=== PATIENT | female | born 1985 | race Caucasian/White ===

== ENCOUNTER 2022-01-08 08:06 | Outpatient (CLI) | payer OTHER, SELFPAY ==
[2022-01-08 11:40] LABS: Cholesterol* 171 mg/dL (90-199)
[2022-01-08 11:41] LABS: HDL Cholesterol* 27 mg/dL (>=50); LDL Cholesterol Calculated 56 mg/dL (<100)
[2022-01-08 11:56] LABS: Triglycerides* 440 mg/dL (40-149)
== END 2022-01-08 08:07 | disposition home or self-care (01) ==
LOC: NFLDREF 08:09
PROVIDERS: PCP Family Medicine; Visit Provider Registered Nurse
DX: E78.5 Hyperlipidemia, unspecified (principal)
CPT/HCPCS: 80061

== ENCOUNTER 2022-07-07 19:29 | Outpatient (CLI) | payer OTHER, SELFPAY ==
--- NOTE | 2022-07-16 08:44 | W.PM.SLEEP ---
Sleep Study Details Details Interpreting Provider: Dennis Cota MD Date of Sleep Study: 07/07/22 Sleep Study Details: STUDY TYPE:? Home ? BMI:? 39.5 ORDERING PROVIDER:? Arpita INDICATION:? Concerns about sleep apnea ? SLEEP SUMMARY:? 418.5 minutes monitored RESPIRATORY SUMMARY:? AHI 14.1, supine 21, left lateral 3.3, right lateral 1.7 Low oxygen 87 0.1% of study oxygen was less than 90, 85, 80, and 70% Snoring 68.2% PERIODIC LIMB MOVEMENTS OF SLEEP:? Not recorded CARDIAC:? Range 48-88, mean 58.9 beats per minute IMPRESSION:? Mild obstructive sleep apnea with supine position dependency. There is minimal to no apnea in the left and right lateral positions. RECOMMENDATION: Treatment options include trial of lateral sleep, CPAP AutoSet 4-17, dental appliance, and/or weight loss.
== END 2022-07-07 19:30 | disposition home or self-care (01) ==
PROVIDERS: PCP Family Medicine; Visit Provider Family Medicine
DX: G47.33 Obstructive sleep apnea (adult) (pediatric) (principal)
CPT/HCPCS: 95806

== ENCOUNTER 2022-08-27 09:01 | Outpatient (CLI) | payer OTHER, SELFPAY ==
--- NOTE | 2022-08-27 09:00 | CRLHL7_ITS ---
For Patients: As a result of the Century Cures Act, medical imaging exams and procedure reports are released immediately into your electronic medical record. You may view this report before your referring provider. If you have questions, please contact your health care provider. INDICATION: Sinusitis. TECHNIQUE: Noncontrast CT images acquired through the paranasal sinuses. COMPARISON: None. FINDINGS: No air-fluid levels to suggest acute sinusitis. Mild mucosal thickening in the maxillary sinuses. The ethmoid infundibula are widely patent. Minimal mucosal thickening in the right frontal recess. The frontal sinuses are otherwise clear. Mild mucosal thickening in the ethmoid air cells. Minimal mucosal thickening in the sphenoid sinuses. The sphenoethmoidal recesses are widely patent. There is 6-7 mm rightward nasal septal deviation. No nasal cavity masses. The mastoid air cells are clear. IMPRESSION: 1. Mild paranasal sinus mucosal disease. No air-fluid levels to suggest acute sinusitis. 2. Rightward nasal septal deviation. Please note that all CT scans at this facility use dose modulation, iterative reconstruction, and/or weight-based dosing when appropriate to reduce radiation dose to as low as reasonably achievable. Dictated by Kristopher Hoang MD @ 08/27/2022 12:02:28 PM (Electronically Signed)
== END 2022-08-27 09:02 | disposition home or self-care (01) ==
LOC: CT 09:02
PROVIDERS: PCP Family Medicine; Visit Provider Otolaryngology
DX: J32.9 Chronic sinusitis, unspecified (principal); J34.2 Deviated nasal septum
CPT/HCPCS: 70486

== ENCOUNTER 2023-04-08 15:43 | Outpatient (CLI) | payer OTHER, SELFPAY ==
--- NOTE | 2023-04-08 15:40 | CRLHL7_ITS ---
For Patients: As a result of the Century Cures Act, medical imaging exams and procedure reports are released immediately into your electronic medical record. You may view this report before your referring provider. If you have questions, please contact your health care provider. BILATERAL SCREENING MAMMOGRAM WITH COMPUTER-AIDED DETECTION AND TOMOSYNTHESIS TECHNIQUE: CC and MLO views were obtained. These mammographic images have been obtained using full-field digital technique. These mammographic images were interpreted with the benefit of computer-aided detection. Breast Tomosynthesis was used in this interpretation. COMPARISON FILM: Baseline. FINDINGS: The breasts are almost entirely fatty IMPRESSION: There is no radiographic evidence for malignancy. ASSESSMENT: BI-RADS Category 2: Benign RECOMMENDATION: Routine screening mammogram in 1 year. A lay language report of this examination will be provided to the patient. Freddie Aguilar M.D. Diagnostic Radiologist [email or web address] PRAVEEN/Dictated by: Freddie Aguilar MD @ 04/09/2023 12:04:00 PM (Electronically Signed)
== END 2023-04-08 15:44 | disposition home or self-care (01) ==
LOC: MAMMO 15:43
PROVIDERS: PCP Family Medicine; Visit Provider Registered Nurse
DX: Z12.31 Encounter for screening mammogram for malignant neoplasm of breast (principal)
CPT/HCPCS: 77063; 77067

== ENCOUNTER 2023-06-06 08:54 | Outpatient (CLI) | payer OTHER, SELFPAY ==
--- OUTSIDE RECORDS SUMMARY | 2023-06-11 21:23 | XMS_ITS | Clinical Summary ---
Author Name Unknown Organization [employer] [facility] [employer] Address [place], [place] [address] Care Team Providers Care Equipment Operator/Laborer/Supervisor Name Role Phone Services, [facility] Tabby Palm MD Primary Care Provider + Allergies No known active allergies Medications Medication Sig Dispensed Refills Start Date End Date Status vitamin-folic acid 1 mg ( VITAMIN) tablet/capsule Take 1 tablet by mouth once daily. 0 11/01/2015 Active Active Problems Problem Noted Date Diagnosed Date Gestational diabetes 06/04/2013 Immunizations Name Administration Dates Next Due DTaP 11/14/1988, 5,1983,1983, Influenza Virus, Unspecified 03/08/2015 Influenza, IIV4 03/26/2016 MMR 08/04/1984 Polio Virus, Unspecified 11/14/1988,09/01,1983,1983, Tdap 03/11/2012,04/12/2010,12/01/2008 Family History Medical History Relation Name Comments Heart Disease Father Stent Hypertension Father Cancer-breast Maternal Aunt 1 Cancer-breast Maternal Aunt 2 Cancer Maternal Grandfather Pancrea tic Dec @ 85 Cancer-breast Maternal Grandmother Diabetes Maternal Grandmother Heart Disease Maternal Grandmother CAD Hypertension Maternal Grandmother Dec @ 7 0 Good Health Mother Cancer Paternal Grandfather Pancrea tic Heart Disease Paternal Grandfather CABG Diabetes Paternal Grandmother Hypertension Paternal Grandmother Relation Name Status Comments Father Maternal Aunt 1 Maternal Aunt 2 Maternal Grandfather Maternal Grandmother Mother Paternal Grandfather Paternal Grandmother Social History Tobacco Use Types Packs/Day Years Used Date Smoking Tobacco: Never Smokeless Tobacco: Never Alcohol Use Standard Drinks/Week Comments No 0 (1 standard drink = 0.6 oz pur e alcohol) Sex and Gender Information Value Date Recorded Sex Assigned at Not on file Gender Identity Not on file Sexual Orientation Not on file Obstetrics History Para Term AB IAB SAB Ectopic Multiple Livin g Live Births 1 Date Outcome GA Total Labor Labor/2nd/3rd Weight Sex Delivery Anes PTL Zabrina A1 A5 Name Cl in Last Filed Vital Signs Vital Sign Reading Time Taken Comments Blood Pressure 129/85 06/21/2018 12:01 PM HOUSE REPAIRER Pulse 66 06/21/2018 12:01 PM HOUSE REPAIRER Temperature 36.2 ??C (97.2 ??F) 06/21/2018 12:[address] Respiratory Rate 20 06/21/2018 12:01 PM HOUSE REPAIRER Oxygen Saturation 98% 06/21/2018 12:01 PM HOUSE REPAIRER Inhaled Oxygen Concentration - - Weight 88 kg (194 lb 1.6 oz) 03/26/2016 8:44 AM CDT Height 164.5 cm (5' 4.75) 03/26/2016 8:44 AM CD T Body Mass Index 32.55 03/26/2016 8:44 AM CDT Plan of Treatment Health Maintenance Due Date Last Done Comments HIV for age 15-65 1998 Hepatitis C screening for age 18-79 2001 Depression screening for age 12+ 10/31/2016 11/01/2015 BMI (ht and wt on same day) for age 18+ 03/26/2017 03/26/2016, 11/05/2015, 11/01/2015, Additional history exists Tetanus booster 03/11/2022 03/11/2012, 04/02, 12/01/2008 COVID-19 vaccine series ( season) 2023 03/26/2021 Influenza for age 9-49 01/31/2023 03/26/2016, 2014 Pap test for age 21-65 10/07/2023 10/06/2020, 2020 Tdap Completed 03/11/2012, 04/02, 12/01/2008 Pneumococcal series for age 6-64 Aged Out No longer eligible based on patient's age to complete this topic Care Teams Equipment Operator/Laborer/Supervisor Relationship Specialty Start Date End Date Tabby Palm MD [address] [place] [address] PCP - General Family Practice 04/25/21 Services, [address] [address] 06/21/18
== END 2023-06-06 08:55 | disposition home or self-care (01) ==
LOC: NFLDREF 06-11 21:22
PROVIDERS: PCP Family Medicine; Referring Provider Family Medicine; Visit Provider Family Medicine
DX: R73.03 Prediabetes (principal); E66.9 Obesity, unspecified; E78.2 Mixed hyperlipidemia; R53.83 Other fatigue
CPT/HCPCS: 80053; 80061; 84443

== ENCOUNTER 2023-07-09 14:00 | Outpatient (CLI) | payer OTHER, SELFPAY ==
--- OUTSIDE RECORDS SUMMARY | 2023-07-11 05:48 | XMS_ITS | Clinical Summary ---
Author Name Unknown Organization [employer] [facility] [employer] [facility] Address [place], [place] [address] Care Team Providers Care Records Clerk Name Role Phone Services, [facility] Tabby Palm MD Primary Care Provider + [...] Comments Blood Pressure 129/85 06/21/2018 12:01 PM BIOMASS POWER PLANT SUPERINTENDENT Pulse 66 06/21/2018 12:01 PM BIOMASS POWER PLANT SUPERINTENDENT Temperature 36.2 ??C (97.2 ??F) 06/21/2018 12:[address] Respiratory Rate 20 06/21/2018 12:01 PM BIOMASS POWER PLANT SUPERINTENDENT Oxygen Saturation 98% 06/21/2018 12:01 PM BIOMASS POWER PLANT SUPERINTENDENT Inhaled Oxygen Concentration - - Weight 88 [...] age to complete this topic Care Teams Records Clerk Relationship Specialty Start Date End Date Tabyb Palm MD [address] [place] [address] PCP - General Family Practice 04/25/21 Services, [address] [address] 06/21/18
== END 2023-07-09 14:01 | disposition home or self-care (01) ==
LOC: NFLDREF 07-11 05:46
PROVIDERS: PCP Family Medicine; Referring Provider Family Medicine; Visit Provider Nurse Practitioner Family
DX: R35.0 Frequency of micturition (principal); R10.9 Unspecified abdominal pain
CPT/HCPCS: 87086

== ENCOUNTER 2023-12-30 19:29 | Outpatient (CLI) | payer OTHER, SELFPAY ==
--- OUTSIDE RECORDS SUMMARY | 2023-12-30 19:31 | XMS_ITS | Clinical Summary ---
Author Organization [employer] [facility] [employer] [facility] Address [place], [place] [address] Care Team Providers Care Ebd Teacher Name Role Phone Services, [facility] [place] [phone] Tabby Palm MD Primary Care Provider + [...] IIV4 03/26/2016 MMR 08/04/1984 Polio Virus, Unspecified 11/14/1988,04/2 09/1984,1983,1983, Tdap 03/11/2012,04/12/2010,12/01/2008 Family History Medical History Relation [...] Outcome GA Total Labor Labor/2nd/3rd Weight Sex Type Anes PTL Zabrina A1 A5 Name Clin Last Filed Vital Signs Vital Sign Reading Time Taken Comments Blood Pressure 129/85 06/21/2018 12:01 PM YEAST CAKE CUTTER Pulse 66 06/21/2018 12:01 PM YEAST CAKE CUTTER Temperature 36.2 ??C (97.2 ??F) 06/21/2018 12:[address] Respiratory Rate 20 06/21/2018 12:01 PM YEAST CAKE CUTTER Oxygen Saturation 98% 06/21/2018 12:01 PM YEAST CAKE CUTTER Inhaled Oxygen Concentration - - Weight 88 [...] COVID-19 vaccine series ( season) 2023 03/26/2021 Pap test for age 21-65 10/07/2023 10/06/2020, 2020 Influenza for age 9-49 02/01/2024 03/26/2016, 2014 Tdap Completed 03/11/2012, 04/02, 12/01/2008 Pneumococcal series for age 6-64 Aged Out No longer eligible based on patient's age to complete this topic Procedures Procedure Name Priority Date/Time Associated Diagnosis Comments ALLERGY NURSE THIN PREP PAP SCREEN IMAGED Routine 10/06/2020 2:30 PM CDT from Last 3 Months or Most Recently Relevant to Health Maintenance Results * ALLERGY NURSE THIN PREP PAP SCREEN IMAGED (10/06/2020 2:30 PM CDT) Case Report Gynecologic Cytology Report ? Case: [id number] ? Authorizing Provider: ??Yvonne Ulrcih MD ?? Collected: ? 10/06/2020 1430 ? Ordering Location: ? [facility] ?Received: ?10/10/2020 0819 ? First Screen: ?Radha Weiss ? Specimen: ?ALLERGY NURSE ThinPrep Vial Screening, Cervical/Vaginal ? 10/19/2020 10:10 AM CDT [facility] INTERPRETATION/ RESULT NEGATIVE FOR INTRAEPITHELIAL LESION OR MALIGNANCY (NIL) (none) 10/19/2020 10:10 AM CDT [facility] IMEN ADEQUACY Satisfactory for evaluation Endocervical component present 10/19/2020 10:10 AM CDT [facility] HPV REQUEST HPV and PAP 10/19/2020 10:10 AM CDT [facility] Last Pap Date 06/22/2015 10/19/2020 10:10 AM CDT [facility] Last Pap Result NIL 10:10 AM CDT [facility] Comment:Negative Additional Information 10/19/2020 10:10 AM CDT [facility] Comment: Interpreted at [facility] - [address], [place] [address] Automated Review Successful 10/19/2020 10:10 AM CDT [facility] Comment:Specimen processed s uccessfully by automated gimp buttonhole machine operator device, [employer]Prep Imaging System, [employer] ANCILLARY TESTING ALLERGY NURSE HPV Ordered, Please see separate report 10/19/2020 10:10 AM CDT [facility] Note The pap test is a screening technique, not a diagnostic procedure. It is used primarily to screen for squamous cancers and precursor lesions. Published studies have shown that it is subject to both false negative and false positive results. The pap test should not be used as the sole means to diagnose or exclude pre-malignant and malignant lesions. 10/19/2020 10:10 AM T [facility] Other (Cervical/Vagina l) 10/06/2020 2:30 PM CDT 10/10/2020 8:19 AM CDT Yvonne Ulrich MD PATHOLOGY/CYTOLOG Y [facility] [address] [place] [address], [place] from Last 3 Months or Most Recently Relevant to Health Maintenance Care Teams Ebd Teacher Relationship Specialty Start Date End Date Tabby Palm MD [address] [place] [address] PCP - General Family Practice 04/25/21 Services, [address] [phone] 06/21/18
--- NOTE | 2024-01-27 08:12 | W.PM.SLEEP ---
Sleep Study Details Details Interpreting Provider: Cipriano Date of Sleep Study: 12/30/23 Sleep Study Details: STUDY TYPE:? Home unattended ? BMI:? 40.3 ORDERING PROVIDER:? Cipriano INDICATION:? Concern about sleep apnea ? SLEEP SUMMARY:? 302 minutes monitored RESPIRATORY SUMMARY:? AHI 11.5 Low oxygen 82 21.7% of study oxygen less than 90% Snoring 100% PERIODIC LIMB MOVEMENTS OF SLEEP:? Not recorded CARDIAC:? Range 52-93, mean 67.5 IMPRESSION:? Mild obstructive sleep apnea Significant hypo oxygenation. 21.7% of study oxygen less than 90% RECOMMENDATION: Treatment options for the obstructive sleep apnea include CPAP, dental appliance, weight loss and/or airway expansion surgery. Once effective therapy is established an overnight oximetry should be performed. Further cardiopulmonary evaluation may be indicated.
== END 2023-12-30 19:30 | disposition home or self-care (01) ==
LOC: SLEEP 19:29
PROVIDERS: PCP Family Medicine; Visit Provider Otolaryngology
DX: G47.33 Obstructive sleep apnea (adult) (pediatric) (principal)
CPT/HCPCS: 95806

== ENCOUNTER 2024-01-13 07:58 | Outpatient (CLI) | payer OTHER, SELFPAY ==
--- OUTSIDE RECORDS SUMMARY | 2024-01-16 08:15 | XMS_ITS | Clinical Summary ---
Author Organization [employer] [facility] [employer] [facility] Address [place], [place] [address] Care Team Providers Care Club Concierge Name Role Phone Services, [facility] Tabby Palm MD Primary Care Provider + [...] Comments Blood Pressure 129/85 06/21/2018 12:01 PM LACTATION CONSULTANT Pulse 66 06/21/2018 12:01 PM LACTATION CONSULTANT Temperature 36.2 ??C (97.2 ??F) 06/21/2018 12:[address] Respiratory Rate 20 06/21/2018 12:01 PM LACTATION CONSULTANT Oxygen Saturation 98% 06/21/2018 12:01 PM LACTATION CONSULTANT Inhaled Oxygen Concentration - - Weight 88 [...] Procedure Name Priority Date/Time Associated Diagnosis Comments OFFSET ASSISTANT PRESS OPERATOR THIN PREP PAP SCREEN IMAGED Routine 10/06/2020 2:30 PM CDT from Last 3 Months or Most Recently Relevant to Health Maintenance Results * OFFSET ASSISTANT PRESS OPERATOR THIN PREP PAP SCREEN IMAGED (10/06/2020 2:30 PM CDT) Case Report Gynecologic Cytology Report ? Case: [id number] ? Authorizing Provider: ??Yvonne Ulrich MD ?? Collected: ? 10/06/2020 1430 ? Ordering Location: ? [facility] ?Received: ?10/10/2020 0819 ? First Screen: ?Radha Weiss ? Specimen: ?OFFSET ASSISTANT PRESS OPERATOR ThinPrep Vial Screening, Cervical/Vaginal ? 10/19/2020 10:10 AM CDT [facility] INTERPRETATION/ RESULT NEGATIVE FOR INTRAEPITHELIAL LESION OR MALIGNANCY (NIL) (none) 10/19/2020 10:10 AM CDT [facility] IMEN ADEQUACY Satisfactory for evaluation Endocervical component present 10/19/2020 10:10 AM CDT [facility] HPV REQUEST HPV and PAP 10/19/2020 10:[address] [facility] Last Pap Date 06/22/2015 10/19/2020 10:[address] [facility] Last Pap Result NIL 10:[address] [facility] Comment:Negative Additional Information 10/19/2020 10:[address] [facility] Comment: Interpreted at [facility] - [address], [place] [address] Automated Review Successful 10/19/2020 10:[address] [facility] Comment:Specimen processed s uccessfully by automated parts interpreter device, [employer]Prep Imaging System, [employer] ANCILLARY TESTING OFFSET ASSISTANT PRESS OPERATOR HPV Ordered, Please see separate report 10/19/2020 10:[address] [facility] Note The pap test is a [...] and malignant lesions. 10/19/2020 10:[address] [facility] Other (Cervical/Vagina l) 10/06/2020 2:30 PM CDT 10/10/2020 8:19 AM CDT Yvonne Ulrich MD PATHOLOGY/CYTOLOG Y [facility] [address] [place] [address], [place] from Last 3 Months or Most Recently Relevant to Health Maintenance Care Teams Club Concierge Relationship Specialty Start Date End Date Tabby Palm MD [address] [place] [address] PCP - General Family Practice 04/25/21 Services, [address] [phone] 06/21/18
== END 2024-01-13 07:59 | disposition home or self-care (01) ==
LOC: NFLDREF 01-16 08:13
PROVIDERS: PCP Family Medicine; Referring Provider Family Medicine; Visit Provider Registered Nurse
DX: E78.2 Mixed hyperlipidemia (principal)
CPT/HCPCS: 80061

== ENCOUNTER 2024-01-29 07:13 | Outpatient (CLI) | payer OTHER, SELFPAY ==
--- NOTE | 2024-01-29 07:15 | CRLHL7_ITS ---
For Patients: As a result of the Century Cures Act, medical imaging exams and procedure reports are released immediately into your electronic medical record. You may view this report before your referring provider. If you have questions, please contact your health care provider. INDICATION: Displacement of IUD COMPARISON: none TECHNIQUE: 2D muñoz scale and color Doppler images were acquired of the pelvis using a transabdominal and transvaginal approach. FINDINGS: Sonographic images demonstrate a normal size and smooth outer contour of the uterus. Uterus measures 9.0 cm in length by 3.8 cm in AP diameter by 5.0 cm in transverse dimension. The myometrium has a heterogeneous echotexture. The endometrial lining measures 3.3 mm in composite thickness. Multiple nabothian cysts. IUD in the mid endometrium. The right ovary measures 4.4 x 3.1 x 4.1 cm in size and the left ovary is not visualized. The right ovary demonstrates normal arterial and venous blood flow on color Doppler analysis. There are no suspicious fluid collections within the cul-de-sac. IMPRESSION: IUD in the midportion of the endometrium. Dictated by Freddie Aguilar MD @ 01/29/2024 1:40:57 PM (Electronically Signed)
--- OUTSIDE RECORDS SUMMARY | 2024-01-29 07:16 | XMS_ITS | Clinical Summary ---
Author Organization [employer] [facility] [employer] [facility] Address [place], [place] [address] Care Team Providers Care Home Care Specialist Name Role Phone Services, [facility] [phone] Tabby Palm MD Primary Care Provider + [...] Comments Blood Pressure 129/85 06/21/2018 12:01 PM OIL BAY TECHNICIAN Pulse 66 06/21/2018 12:01 PM OIL BAY TECHNICIAN Temperature 36.2 ??C (97.2 ??F) 06/21/2018 12:[address] Respiratory Rate 20 06/21/2018 12:01 PM OIL BAY TECHNICIAN Oxygen Saturation 98% 06/21/2018 12:01 PM OIL BAY TECHNICIAN Inhaled Oxygen Concentration - - Weight 88 [...] Procedure Name Priority Date/Time Associated Diagnosis Comments EDGER RUNNER THIN PREP PAP SCREEN IMAGED Routine 10/06/2020 2:30 PM CDT from Last 3 Months or Most Recently Relevant to Health Maintenance Results * EDGER RUNNER THIN PREP PAP SCREEN IMAGED (10/06/2020 2:30 PM CDT) Case Report Gynecologic Cytology Report ? Case: [id number] ? Authorizing Provider: ??Yvonne Ulrich MD ?? Collected: ? 10/06/2020 1430 ? Ordering Location: ? [facility] ?Received: ?10/10/2020 0819 ? First Screen: ?Radha Weiss ? Specimen: ?EDGER RUNNER ThinPrep Vial Screening, Cervical/Vaginal ? 10/19/2020 10:10 AM CDT [facility] INTERPRETATION/ RESULT NEGATIVE FOR INTRAEPITHELIAL LESION OR MALIGNANCY (NIL) (none) 10/19/2020 10:10 AM CDT [facility] IMEN ADEQUACY Satisfactory for evaluation Endocervical component present 10/19/2020 10:10 AM CDT [facility] HPV REQUEST HPV and PAP 10/19/2020 10:10 AM CDT [facility] Last Pap Date 06/22/2015 10/19/2020 10:10 AM CDT [facility] Last Pap Result NIL 10:10 AM CDT [facility] Comment:Negative Additional Information 10/19/2020 10:10 AM CDT [facility] Comment: Interpreted at [facility] - [address], [place] [address] Automated Review Successful 10/19/2020 10:10 AM CDT [facility] Comment:Specimen processed s uccessfully by automated river crossing supervisor device, DermiraPrep Imaging System, [employer] ANCILLARY TESTING EDGER RUNNER HPV Ordered, Please see separate report 10/19/2020 10:10 AM CDT [facility] Note The pap test is a [...] and malignant lesions. 10/19/2020 10:10 AM T [facility] Other (Cervical/Vagina l) 10/06/2020 2:30 PM CDT 10/10/2020 8:19 AM CDT Yvonne Ulrich MD PATHOLOGY/CYTOLOG Y [facility] [address] [place] [address], [place] from Last 3 Months or Most Recently Relevant to Health Maintenance Care Teams Home Care Specialist Relationship Specialty Start Date End Date Tabby Palm MD [address] [place] [address] PCP - General Family Practice 04/25/21 Services, [address] [phone] 06/21/18
== END 2024-01-29 07:14 | disposition home or self-care (01) ==
LOC: US 07:14
PROVIDERS: PCP Family Medicine; Visit Provider Registered Nurse
DX: T83.32XA Displacement of intrauterine contraceptive device, initial encounter (principal)
CPT/HCPCS: 76830; 76856

== ENCOUNTER 2024-02-16 16:36 | Outpatient (CLI) | payer OTHER, SELFPAY ==
--- OUTSIDE RECORDS SUMMARY | 2024-02-16 16:38 | XMS_ITS | Clinical Summary ---
Author Organization [employer] [facility] [employer] [facility] Address [place], [place] [address] Care Team Providers Care Sustainable Systems Analyst Name Role Phone Services, [facility] [place] [phone] Tabby Palm MD Primary Care Provider + [...] Comments Blood Pressure 129/85 06/21/2018 12:01 PM MANAGER CONTRACTING Pulse 66 06/21/2018 12:01 PM MANAGER CONTRACTING Temperature 36.2 ??C (97.2 ??F) 06/21/2018 12:[address] Respiratory Rate 20 06/21/2018 12:01 PM MANAGER CONTRACTING Oxygen Saturation 98% 06/21/2018 12:01 PM MANAGER CONTRACTING Inhaled Oxygen Concentration - - Weight 88 [...] exists Tetanus booster 03/11/2022 03/11/2012, 04/02, 12/01/2008 Pap test for age 21-65 10/07/2023 10/06/2020, 2020 COVID-19 vaccine series ( season) 2024 03/26/2021 Influenza for age 9-49 02/01/2024 03/26/2016, 2014 Tdap Completed 03/11/2012, 04/02, 12/01/2008 Pneumococcal series for age 6-64 Aged Out No longer eligible based on patient's age to complete this topic Procedures Procedure Name Priority Date/Time Associated Diagnosis Comments DIRECTOR PRIVATE MUSIC THERAPY AGENCY THIN PREP PAP SCREEN IMAGED Routine 10/06/2020 2:30 PM CDT from Last 3 Months or Most Recently Relevant to Health Maintenance Results * DIRECTOR PRIVATE MUSIC THERAPY AGENCY THIN PREP PAP SCREEN IMAGED (10/06/2020 2:30 PM CDT) Case Report Gynecologic Cytology Report ? Case: [id number] ? Authorizing Provider: ??Yvonne Ulrich MD ?? Collected: ? 10/06/2020 1430 ? Ordering Location: ? [facility] ?Received: ?10/10/2020 0819 ? First Screen: ?Radha Weiss ? Specimen: ?DIRECTOR PRIVATE MUSIC THERAPY AGENCY ThinPrep Vial Screening, Cervical/Vaginal ? 10/19/2020 10:10 AM CDT [facility] INTERPRETATION/ RESULT NEGATIVE FOR INTRAEPITHELIAL LESION OR MALIGNANCY (NIL) (none) 10/19/2020 10:10 AM CDT [facility] IMEN ADEQUACY Satisfactory for evaluation Endocervical component present 10/19/2020 10:10 AM CDT [facility] HPV REQUEST HPV and PAP 10/19/2020 10:10 AM CDT [facility] Last Pap Date 06/22/2015 10/19/2020 10:10 AM CDT [facility] Last Pap Result NIL 10:10 AM CDT [facility] Comment:Negative Additional Information 10/19/2020 10:10 AM CDT [facility] Comment: Interpreted at [facility] - [address], [place] [address] Automated Review Successful 10/19/2020 10:10 AM CDT [facility] Comment:Specimen processed s uccessfully by automated learning support specialist device, HubPagesPrep Imaging System, [employer] ANCILLARY TESTING DIRECTOR PRIVATE MUSIC THERAPY AGENCY HPV Ordered, Please see separate report 10/19/2020 10:10 AM CDT [facility] Note The pap test is a [...] and malignant lesions. 10/19/2020 10:10 AM T [facility] Other (Cervical/Vagina l) 10/06/2020 2:30 PM CDT 10/10/2020 8:19 AM CDT Yvonne Ulrich MD PATHOLOGY/CYTOLOG Y [facility] [address] [place] [address], [place] from Last 3 Months or Most Recently Relevant to Health Maintenance Care Teams Sustainable Systems Analyst Relationship Specialty Start Date End Date Tabby Palm MD [address] [place] [address] PCP - General Family Practice 04/25/21 Services, [address] [phone] 06/21/18
== END 2024-02-16 16:37 | disposition home or self-care (01) ==
LOC: FRMREF 16:36
PROVIDERS: PCP Family Medicine; Visit Provider Family Medicine
DX: E11.9 Type 2 diabetes mellitus without complications (principal); E78.5 Hyperlipidemia, unspecified
CPT/HCPCS: 82043; 82570

== ENCOUNTER 2024-04-09 15:15 | Outpatient (CLI) | payer OTHER, SELFPAY ==
--- OUTSIDE RECORDS SUMMARY | 2024-04-09 15:17 | XMS_ITS | Clinical Summary ---
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 Machine Operator Name Role Phone Services, [facility] Tabby Palm MD Primary Care Provider + [...] Comments Blood Pressure 129/85 06/21/2018 12:01 PM [employer] Pulse 66 06/21/2018 12:01 PM [employer] Temperature 36.2 ??C (97.2 ??F) 06/21/2018 12:[address] Respiratory Rate 20 06/21/2018 12:01 PM [employer] Oxygen Saturation 98% 06/21/2018 12:01 PM [employer] Inhaled Oxygen Concentration - - Weight 88 [...] Procedure Name Priority Date/Time Associated Diagnosis Comments POST DOC FELLOWSHIP THIN PREP PAP SCREEN IMAGED Routine 10/06/2020 2:30 PM CDT from Last 3 Months or Most Recently Relevant to Health Maintenance Results * POST DOC FELLOWSHIP THIN PREP PAP SCREEN IMAGED (10/06/2020 2:30 PM CDT) Case Report Gynecologic Cytology Report ? Case: [id number] ? Authorizing Provider: ??Yvonne Ulrich MD ?? Collected: ? 10/06/2020 1430 ? Ordering Location: ? [facility] ?Received: ?10/10/2020 0819 ? First Screen: ?Radha Weiss ? Specimen: ?POST DOC FELLOWSHIP ThinPrep Vial Screening, Cervical/Vaginal ? 10/19/2020 10:10 AM CDT [facility] INTERPRETATION/ RESULT NEGATIVE FOR INTRAEPITHELIAL LESION OR MALIGNANCY (NIL) (none) 10/19/2020 10:10 AM CDT [facility] IMEN ADEQUACY Satisfactory for evaluation Endocervical component present 10/19/2020 10:10 AM CDT [facility] HPV REQUEST HPV and PAP 10/19/2020 10:10 AM CDT [facility] Last Pap Date 06/22/2015 10/19/2020 10:10 AM CDT [facility] Last Pap Result NIL 10:10 AM CDT [facility] Comment:Negative Additional Information 10/19/2020 10:10 AM CDT [facility] Comment: Interpreted at [facility] - [address], [place] [address] Automated Review Successful 10/19/2020 10:10 AM CDT [facility] Comment:Specimen processed s uccessfully by automated warehouse pricing and inventory clerk device, [employer] Imaging System, [employer] ANCILLARY TESTING POST DOC FELLOWSHIP HPV Ordered, Please see separate report 10/19/2020 10:10 AM CDT [facility] Note The pap test is [...] and malignant lesions. 10/19/2020 10:10 AM T [facility] Other (Cervical/Vagina l) 10/06/2020 2:30 PM CDT 10/10/2020 8:19 AM CDT Yvonne Ulrich MD PATHOLOGY/CYTOLOG Y [facility] [address] [place] [address], [place] from Last 3 Months or Most Recently Relevant to Health Maintenance Care Teams Deskidding Machine Operator Relationship Specialty Start Date End Date Tabby Palm MD [address] [place] [address] PCP - General Family Practice 04/25/21 Services, [address] [phone] 06/21/18
--- NOTE | 2024-04-09 15:20 | CRLHL7_ITS ---
For Patients: As a result of the Century Cures Act, medical imaging exams and procedure reports are released immediately into your electronic medical record. You may view this report before your referring provider. If you have questions, please contact your health care provider. BILATERAL SCREENING MAMMOGRAM WITH COMPUTER-AIDED DETECTION AND TOMOSYNTHESIS TECHNIQUE: CC and MLO views were obtained. These mammographic images have been obtained using full-field digital technique. These mammographic images were interpreted with the benefit of computer-aided detection. Breast tomosynthesis was used in this interpretation. COMPARISON FILM: 04/08/2023. FINDINGS: The breasts are almost entirely fatty. IMPRESSION: There is no radiographic evidence for malignancy. ASSESSMENT: BI-RADS Category 1: Negative RECOMMENDATION: Routine screening mammogram in 1 year. A lay language report of this examination will be provided to the patient. FREDDIE HUI M.D. Diagnostic Radiologist [email or web address] PRADIP/[email or web address] Transcribed: 04/15/2024, 2:[address]/Dictated by: Freddie Hui MD @ 04/15/2024 12:29:00 PM (Electronically Signed)
== END 2024-04-09 15:16 | disposition home or self-care (01) ==
LOC: MAMMO 15:15
PROVIDERS: PCP Family Medicine; Visit Provider Family Medicine
DX: Z12.31 Encounter for screening mammogram for malignant neoplasm of breast (principal)
CPT/HCPCS: 77063; 77067

== ENCOUNTER 2024-05-17 11:30 | Outpatient (CLI) | payer OTHER, SELFPAY | END 2024-05-17 11:31 | disposition home or self-care (01) | PROVIDERS: PCP Family Medicine; Visit Provider Family Medicine | DX: E78.2 Mixed hyperlipidemia (principal); E11.9 Type 2 diabetes mellitus without complications; Z79.85 Long-term (current) use of injectable non-insulin antidiabetic drugs | CPT/HCPCS: 80053; 80061 ==

== ENCOUNTER 2025-04-29 14:00 | Outpatient (CLI) | payer OTHER, SELFPAY ==
--- NOTE | 2025-04-29 14:00 | CRLHL7_ITS ---
For Patients: As a result of the Century Cures Act, medical imaging exams and procedure reports are released immediately into your electronic medical record. You may view this report before your referring provider. If you have questions, please contact your health care provider. INDICATION: BILATERAL SCREENING MAMMOGRAM, ASYMPTOMATIC 40 Y/O FEMALE COMPARISON: 04/09/2024, 04/08/2023 TECHNIQUE: Digital mammogram in CC and MLO projections including computer-aided detection (CAD) and tomosynthesis. BREAST COMPOSITION: There are scattered areas of fibroglandular density. FINDINGS: No suspicious findings. ASSESSMENT: BI-RADS 1 Negative RECOMMENDATION: Annual screening mammogram. A lay language report of this examination will be provided to the patient. Dictated by: Freddie Aguilar MD @ 05/02/2025 12:04:01 (Electronically Signed)
== END 2025-04-29 14:01 | disposition home or self-care (01) ==
LOC: MAMMO 14:00
PROVIDERS: PCP Family Medicine; Visit Provider Registered Nurse
DX: Z12.31 Encounter for screening mammogram for malignant neoplasm of breast (principal)
CPT/HCPCS: 77063; 77067